=== PATIENT | male | born 1960 | race Caucasian/White ===

== ENCOUNTER 2016-07-30 09:17 | Observation (INO) | payer BC ==
[~2016-07-30] VITALS: Ht 188 cm; Wt 115.3 kg
[2016-07-30 10:43] LABS: HEMATOCRIT 52.5 % (38.0-50.0); MCH 31.2 PG (29.0-34.0); MCHC 34.1 G/DL (30.0-36.0); MCV 91.5 FL (86-99); MEAN PLAT.VOLUME 11.1 uM^3 (9.0-12.4); PLATELET COUNT 254 K/uL (156-360); RBC DIS.WIDTH-CV 11.7 % (11.8-14.6); RED BLOOD COUNT 5.74 M/uL (4.00-5.50); WHITE BLOOD COUNT 7.9 K/uL (4.1-10.2)
[2016-07-30 10:53] LABS: CHLORIDE 106 mEq/L (99-109); POTASSIUM 5.1 mEq/L (3.7-5.4); SODIUM 140 mEq/L (136-147)
[2016-07-30 10:55] LABS: GLUCOSE 93 mg/dL (70-99)
[2016-07-30 10:56] LABS: ANION GAP 12 MEQ/L (2-14)
[2016-07-30 10:59] LABS: GFR ESTIMATE (CALCULATED) > 59 mL/min/
[2016-07-30 11:00] LABS: UREA NITROGEN (BUN) 13 mg/dL (9-23)
[2016-07-30 11:05] LABS: TROP-I INTERPRETATION NEGATIVE; TROPONIN-I < 0.01 ng/mL (0.0-0.30)
[2016-07-30] MEDS ORDERED: AMLOD-VALSA-HC1 EAC2 PO (11:56)
[2016-07-30] MEDS ORDERED: CENTRUM SILVER1 EAC5 PO (11:57)
[2016-07-30 13:30] VITALS: BP 120/69
[2016-07-30 15:10] LABS: TROP-I INTERPRETATION NEGATIVE; TROPONIN-I < 0.01 ng/mL (0.0-0.30)
[2016-07-30 16:24] VITALS: BP 122/70
[2016-07-30 20:27] LABS: TROP-I INTERPRETATION NEGATIVE; TROPONIN-I < 0.01 ng/mL (0.0-0.30)
[2016-07-30 21:01] VITALS: BP 125/65
[2016-07-31 03:06] LABS: HEMATOCRIT 47.6 % (38.0-50.0); MCH 31.3 PG (29.0-34.0); MCHC 34.2 G/DL (30.0-36.0); MCV 91.4 FL (86-99); MEAN PLAT.VOLUME 11.1 uM^3 (9.0-12.4); PLATELET COUNT 228 K/uL (156-360); RBC DIS.WIDTH-CV 11.5 % (11.8-14.6); RBC DIS.WIDTH-SD 38.7 % (39-53); RED BLOOD COUNT 5.21 M/uL (4.00-5.50); WHITE BLOOD COUNT 6.4 K/uL (4.1-10.2)
[2016-07-31 03:17] LABS: CHLORIDE 109 mEq/L (99-109); SODIUM 139 mEq/L (136-147)
[2016-07-31 03:19] LABS: GLUCOSE 85 mg/dL (70-99)
[2016-07-31 03:21] LABS: ANION GAP 7 MEQ/L (2-14)
[2016-07-31 03:23] LABS: GFR ESTIMATE (CALCULATED) > 59 mL/min/; POTASSIUM 3.9 mEq/L (3.7-5.4)
[2016-07-31 03:24] LABS: UREA NITROGEN (BUN) 17 mg/dL (9-23)
[2016-07-31 03:28] LABS: TROP-I INTERPRETATION NEGATIVE; TROPONIN-I < 0.01 ng/mL (0.0-0.30)
[2016-07-31 05:45] VITALS: BP 100/55
[2016-07-31 07:34] VITALS: BP 116/65
[2016-07-31 10:53] LABS: D-DIMER ELISA < 0.15 mg/L FEU (< 0.57)
== END 2016-07-31 11:23 | disposition home or self-care (01) ==
LOC: EME 09:17 → EDOF 12:40 → 5WEST 12:40 → EDOF 12:40 → 5WEST 13:26
PROVIDERS: Hospitalist; Nurse Practitioner Adult Health
DX: R07.9 Chest pain, unspecified (principal); R42 Dizziness and giddiness; M25.512 Pain in left shoulder; I10 Essential (primary) hypertension
CPT/HCPCS: 71020; 80048; 84484; 85027; 85379; 93005; 99281; 99284; G0378; J1650; J7030